=== PATIENT | female | born 1980 | race Caucasian/White ===

== ENCOUNTER 2016-07-07 13:55 | Emergency (ER) | payer MEDICAID, OTHER ==
[~2016-07-07] VITALS: Ht 157.5 cm; Wt 118.0 kg
[2016-07-07] MEDS ORDERED: DIAZEPAM 5 MG TABLET PO ONE (18:15)
[2016-07-07 19:31] VITALS: BP 127/81
== END 2016-07-07 19:32 | disposition home or self-care (01) ==
LOC: ER 15:14
DX: S10.90XA Unspecified superficial injury of unspecified part of neck, initial encounter (principal); Z90.49 Acquired absence of other specified parts of digestive tract; Z98.51 Tubal ligation status; V49.9XXA Car occupant (driver) (passenger) injured in unspecified traffic accident, initial encounter; Y93.89 Activity, other specified; Y92.410 Unspecified street and highway as the place of occurrence of the external cause; Y99.8 Other external cause status
CPT/HCPCS: 99282; 99283